=== PATIENT | female | born 1985 | race American Indian/Alaskan Native ===

== ENCOUNTER 2019-01-18 08:17 | Emergency (ER) | payer MEDICAID ==
[2019-01-18 08:37] VITALS: BP 105/70
[2019-01-18] MEDS ORDERED: ONDANSETRON 4 MG ODT TAB PO ONE (09:37)
--- NOTE | 2019-01-18 09:44 | Emergency Department Report ---
Vomiting/Diarrhea - HPI Chief Complaint: Nausea/Vomiting/Diarrhea Stated Complaint: FLU LIKE SYM/VOMIT Time Seen by Provider: 01/18/19 09:10 Duration: 1 Day Severity: moderate Nausea/Vomiting Severity: Moderate Diarrhea Severity: Mild Pain Location: Generalized Pain Severity: Mild Symptoms: Yes Watery Diarrhea, Yes Fever, Yes Able to Tolerate Fluids, Yes Family w/ Similar Symptoms (daughter diagnosed with influenza B last Friday), No Bloody diarrhea, No Recent Unusual Foods, No Recent Untreated Water, No Recent use of Antibiotics, No Contacts w/ Similar Symptoms, No Rash, No Hematuria, No Recent URI Symptoms Other History: This is a 33-year-old -[place] female who presents to the emergency room with flulike symptoms for one day. Patient states her daughter was diagnosed with influenza be last Friday. She thinks she caught the flu from her daughter. She reports chills, fever, cough, nausea, vomiting, diarrhea, and myalgia. ED Review of Systems ROS: Stated complaint: FLU LIKE SYM/VOMIT Other details as noted in HPI Constitutional: chills, fever Eyes: denies: eye pain, eye discharge, vision change ENT: congestion. denies: ear pain, throat pain, dental pain, hearing loss, epistaxis Respiratory: cough. denies: shortness of breath, wheezing Cardiovascular: denies: chest pain, palpitations Gastrointestinal: denies: abdominal pain, nausea, diarrhea Musculoskeletal: myalgia. denies: back pain, joint swelling, arthralgia Skin: denies: rash, lesions Neurological: denies: headache, weakness, paresthesias Psychiatric: denies: anxiety, depression ED Past Medical Hx - Past Medical History Previous Medical History?: No - Social History Smoking Status: Current Every Day Smoker Substance Use Type: None - Medications Home Medications: Home Medications Medication Instructions Recorded Confirmed Last Taken Type Benzonatate [Tessalon Perles] 100 mg PO Q8HR PRN #30 capsule 01/18/19 Unknown Rx Ondansetron [Zofran Odt] 4 mg PO Q8HR PRN #15 tab.rapdis 01/18/19 Unknown Rx Vomiting Diarrhea Exam - Exam General: Vital signs noted. No distress. Alert and acting appropriately. HEENT: Yes Moist Mucous Membranes, Yes Rhinorrhea (turbinates congested with clear discharge), No Pharyngeal Erythema, No Pharyngeal Exudates, No Conjuctival Injection, No Frontal Tenderness, No Maxillary Tenderness Neck: No Adenopathy, No Rigidity Lungs: Yes Clear Lung Sounds, Yes Good Air Exchange, No Wheezes, No Stridor, No Cough, No Nasal Flaring, No Retractions, No Use of Accessory Muscles Heart exam: Regular: Yes, Murmur: No, Tachycardia: No Abdomen: Tenderness: No, Peritoneal Signs: No, Distention: No, Hyperactive Bowel sounds: No Skin exam: Rash: No, Edema: No, Normal turgor: Yes Neurologic: Alert and oriented, no deficits. Musculoskeletal: Unremarkable. ED Course Vital Signs 01/18/19 08:34 Temperature 99.6 F Pulse Rate 64 Respiratory 16 Rate Blood Pressure 105/70 O2 Sat by Pulse 98 Oximetry ED Medical Decision Making - Medical Decision Making 33-year-old female that presents with fluid intake symptoms. Patient examined by me and stable. No distress noted. Vitals normal. There is mild congestion on exam. Patient's daughter recovering from influenza B there is suspicion of valeria sampson imani influenza. She will be treated for influenza. I'll for Tamiflu antiviral which patient refused. Start Tessalon Perles and Zofran. Reviewed with ER plan with patient with no further questions. Discharged home stable. Encouraged to do supportive care such as [id number] cold and flu medication, increase fluid intake, and wash hands frequently. Follow up with Primary Care Provider in 2-3 days. Critical care attestation.: If time is entered above; I have spent that time in minutes in the direct care of this critically ill patient, excluding procedure time. ED Disposition Clinical Impression: Flu-like symptoms, Viral syndrome Disposition: - TO HOME OR SELFCARE Is pt being admited?: No Condition: Stable Instructions: Influenza (ED), Viral Syndrome (ED) Additional Instructions: Increase fluid intake and rest. Wash hands frequently. Continue taking Tylenol or ibuprofen to control fever. F/U with Primary Care Provider. Return to ER if fever, SOB, or difficulty breathing after 48 hours of supportive care. Prescriptions: Benzonatate [Tessalon Perles] 100 mg PO Q8HR PRN #30 capsule PRN Reason: Cough Ondansetron [Zofran Odt] 4 mg PO Q8HR PRN #15 tab.rapdis PRN Reason: Nausea And Vomiting Referrals: [facility] [Outside] - 3-5 Days [facility] [Outside] - 3-5 Days [facility] [Outside] - 3-5 Days Forms: Work/School Release Form(ED) Time of Disposition: 09:47
== END 2019-01-18 09:55 | disposition home or self-care (01) ==
LOC: ED 08:17
DX: J11.1 Influenza due to unidentified influenza virus with other respiratory manifestations (principal); B34.9 Viral infection, unspecified; F17.200 Nicotine dependence, unspecified, uncomplicated; Z79.899 Other long term (current) drug therapy
CPT/HCPCS: 99282; Q0162